=== PATIENT | male | born 1970 | race Two or more races ===

== ENCOUNTER → 2022-09-03 | Day surgery (SDC) | payer OTHER ==
[~2022-09-03] VITALS: Ht 177.8 cm; Wt 97.1 kg
[~2022-09-03] MED LIST: LEVOFLOXACIN750 MG PO; PERCOCET 5-3251 EACH PO; PYRIDIUM200 MG PO; TAMSULOSIN HCL0.4 MG PO
== END | disposition home or self-care (01) ==
LOC: ER 06:23 → CIR.AMB 06:28 → ER 06:28 → SEC-K 11:03 → O/R 14:46 → EDSTATUS 15:15 → O/R 19:50
PROVIDERS: ATTEND General Practice
DX: N20.1 Calculus of ureter (principal); Z20.822 Contact with and (suspected) exposure to COVID-19